=== PATIENT | female | born 1990 | race Caucasian/White ===

== ENCOUNTER 2019-10-04 14:53 | Emergency (ER) | payer MEDICAID ==
[~2019-10-04] VITALS: Ht 180.3 cm; Wt 81.6 kg
[2019-10-04 14:53] VITALS: BP 137/91
--- NOTE | 2019-10-04 14:53 | NUR ---
Patient BIBA BLS, transferred to bed 8. RN evaluating patient at bedside.
--- NOTE | 2019-10-04 15:18 | NUR ---
Dr. Gonzalez is evaluating the patient at bedside.
--- NOTE | 2019-10-04 15:20 | NUR ---
BIBA WITH C/O HEADACHE AFTER FALL IN [facility] TODAY. PT FRIEND REPORTS PT TRIPPED ON A RUG AND HIT HER HEAD ON A POLE, DENIES LOC. HEMATOMA NOTED TO L SIDE OF SCALP. PT ANSWERING QUESTIONS APPROPRIATELY BUT SLOWLY. PT STATES "I JUST FEEL TIRED." PERRLA 3MM & BRISK, NO SLURRED SPEECH/UNILATERAL WEAKNESS NOTED. BED IN LOW POSITION, SIDE RAIL UP X1. FRIEND AT BEDSIDE
--- NOTE | 2019-10-04 16:31 | NUR ---
PT RESTING IN BED, FRIEND AT BEDSIDE
[2019-10-04] MEDS ORDERED: IBUPROFEN 600 MG TAB PO ONE (16:40)
[2019-10-04 17:04] VITALS: BP 127/89
--- NOTE | 2019-10-04 17:04 | NUR ---
Patient discharged with v/s stable. Written and verbal after care instructions given and explained. Patient verbalized understanding. Ambulatory with steady gait. All questions addressed prior to discharge. Advised to follow up with PMD.
== END 2019-10-04 17:04 | disposition home or self-care (01) ==
LOC: MED 14:53
DX: S06.890A Other specified intracranial injury without loss of consciousness, initial encounter (principal); W18.09XA Striking against other object with subsequent fall, initial encounter; Y93.89 Activity, other specified; Y92.89 Other specified places as the place of occurrence of the external cause; Y99.8 Other external cause status
CPT/HCPCS: 70450; 99284